=== PATIENT | male | born 1960 | race Caucasian/White ===

== ENCOUNTER 2019-01-23 17:24 | Emergency (ER) | payer OTHER, SELFPAY ==
[2019-01-23 17:25] VITALS: BP 155/103; PULSE 89; RESP 16; TEMP 36.4; O2SAT 96
[2019-01-23] MEDS: Fluorescein 1 MG STRIP 1 STRIP LEFT EYE (18:11)
[2019-01-23] MEDS: Tetracaine 0.5% Ophthalmic Bottle 1 DRP LEFT EYE (18:11)
--- NOTE | 2019-01-23 18:24 | ED.VISSUMM ---
- ER Visit Summary Date of Service: 01/23/19 Chief Complaint: Left eye injury History of Present Illness: The patient is a 58 M context no prior eye surgery. Patient states he was cutting wood and believes a piece of the wood flew in his left eye. Planing of a foreign body sensation and discomfort. He does not wear contacts. Physical Examination: Middle-aged male no acute distress. Vital signs are stable and afebrile. Visual acuity pending. H EENT exam pupils round react light extra movement intact. Left eye is watering. There is no purulent discharge. Upper and lower lids are unremarkable. No swelling. They are both everted there is no foreign body. Left eye is minimally injected. Otherwise. Heart, lung, abdominal, extremity neurologic exam is unremarkable. Fluorescein was placed in the left eye which gave him relief. Tetracaine was instilled. Slit-lamp examination exactly in the center of his pupil in the left there is a small very small corneal abrasion. I do not see any foreign body. I do not see any globe rupture. There was minimal fluorescein uptake. Test Results: None Emergency Department Course and Treatment: Acute left eye corneal abrasion. A straight ophthalmic ointment. Floor seen for pain for the next 24 hours then stop. Follow-up with [facility] as needed. Treatment Plan: Eye doctor as needed. Return if worse. Disposition: Discharge Impression: Left eye corneal abrasion This note was generated with [employer] dictation software. It may contain incorrect words, spelling, and punctuation that were not noted in review of the chart prior to signing ED Disposition - Plan for ED Patient: Referrals: Ulisses Fonseca MD [Primary Care Provider] -
--- NOTE | 2019-01-23 18:26 | ED.DEP ---
ED Disposition - Plan for ED Patient: Disposition: Home or Assisted Living Instructions: ED Eye Injury Corneal Abrasion Referrals: Channing Rene MD [STAFF PHYSICIAN] - 3-5 Days if not improving Additional Instructions: Eye ointment 2-3 times a day to lubricate the eye and prevent infection. The eyedrops or tetracaine for pain relief over the next 24 hours only. After tomorrow night throw them away. If used long-term they retard healing. If you are not improving to follow-up with the eye doctor for further evaluation.
== END 2019-01-23 18:41 | disposition home or self-care (01) ==
PROVIDERS: Emergency Provider Emergency Medicine; Family Provider Family Medicine; PCP Family Medicine
DX: S05.02XA Injury of conjunctiva and corneal abrasion without foreign body, left eye, initial encounter (principal); W22.8XXA Striking against or struck by other objects, initial encounter; Y93.89 Activity, other specified; Y92.9 Unspecified place or not applicable
CPT/HCPCS: 99282

== ENCOUNTER → 2019-02-03 11:02 | Outpatient (CLI) | payer OTHER, SELFPAY ==
[2019-02-03 12:35] LABS: Absolute Lymphocyte Count 1.55 X10^3/ul (0.83-4.51); Absolute Neutrophil Count 2.9 X10^3/uL (2.0-7.7); Basophil# 0.05 X10^3/uL; Basophil% 0.9 % (0-1); Eosinophil# 0.54 X10^3/uL; Eosinophils% 9.5 % (0-5); Hematocrit 45.5 % (40-54); Hemoglobin 15.4 g/dl (13.0-16.5); Lymphocyte # 1.55 X10^3/ul (4.0); Lymphocyte % 27.3 % (19-41); Mean Corp Hgb Conc 33.8 g/gl (32-36); Mean Corpuscular Hgb 31.8 pg (27.0-32.0); Mean Corpuscular Volume 93.8 fL (80-94); Mean Platelet Vol. 10.5 fl (6.2-12.0); Monocyte# 0.63 X10^3/uL; Monocyte% 11.1 % (0-10); Platelet Count 229 K/mm3 (150-450); RBC Distribution Width CV 12.3 % (11.6-14.6); RBC Distribution Width SD 41.7 fl (35.1-43.9); Red Blood Count 4.85 M/mm3 (4.6-6.2); White Blood Count 5.7 K/mm3 (4.4-11.0)
[2019-02-03 12:42] LABS: POSITIVE COUNT NO; POSITIVE DIFFERENTIAL NO; POSITIVE MORPHOLOGY NO
[2019-02-03 12:48] LABS: Anion Gap 6 (5-15); BUN 19 mg/dL (7-18); BUN/Creat Ratio 19.5 RATIO (10-20); Chloride 107 mmol/L (98-107); Cholesterol 182 mg/dL (200); Creatinine, Serum 0.98 mg/dL (0.70-1.30); EST Glomerular Filtration Rate 84 mL/min (>60); Est Glom Filt Rate - Afr Amer 101 mL/min (>60); Glucose 90 mg/dL (74-106); High Density Lipoprotein 41 mg/dL; Potassium 4.3 mmol/L (3.5-5.1); Sodium Level 138 mmol/L (136-145); Triglycerides 91 mg/dL; Very Low Density Lipoprotein 18 mg/dL (5-40)
== END ==
PROVIDERS: Family Provider Family Medicine; PCP Family Medicine; Referring Provider Family Medicine; Visit Provider Family Medicine
DX: I10 Essential (primary) hypertension (principal)
CPT/HCPCS: 36415; 80048; 80061; 85025

== ENCOUNTER → 2019-07-14 10:03 | Outpatient (CLI) | payer OTHER, SELFPAY ==
[2019-07-14 12:30] LABS: Absolute Lymphocyte Count 1.52 X10^3/uL (0.83-4.51); Absolute Neutrophil Count 3.2 X10^3/uL (2.0-7.7); Basophil# 0.06 X10^3/uL; Eosinophil# 0.52 X10^3/uL; Eosinophils% 8.8 % (0-5); Hematocrit 43.3 % (40-54); Hemoglobin 14.3 g/dL (13.0-16.5); Lymphocyte # 1.52 X10^3/ul (4.0); Lymphocyte % 25.6 % (19-41); Mean Corpuscular Hgb 32.3 pg (27.0-32.0); Mean Corpuscular Volume 97.7 fL (80-94); Mean Platelet Vol. 10.4 fl (6.2-12.0); Monocyte# 0.64 X10^3/uL; Monocyte% 10.8 % (0-10); NRBC Flagged by Analyzer 0 % (0-5); Neutrophil # 3.16 X10^3/uL (2.7-7.7); Neutrophil % 53.3 % (47-70); Platelet Count 222 K/mm3 (150-450); RBC Distribution Width SD 43.7 fl (35.1-43.9); Red Blood Count 4.43 M/mm3 (4.6-6.2); White Blood Count 5.9 K/mm3 (4.4-11.0)
[2019-07-14 12:40] LABS: Vitamin D,25 Hydroxy 30.4 ng/mL (29.95-100.01)
[2019-07-14 12:44] LABS: Thyroid Stim Hormone (TSH) 2.52 uIU/mL (0.358-3.74)
== END ==
PROVIDERS: Family Provider Family Medicine; PCP Family Medicine; Referring Provider Family Medicine; Visit Provider Family Medicine
DX: R53.83 Other fatigue (principal)
CPT/HCPCS: 36415; 82306; 84403; 84443; 85025

== ENCOUNTER → 2020-03-08 10:16 | Outpatient (CLI) | payer OTHER, SELFPAY ==
[2020-03-08 13:10] LABS: ALB/GLOB Ratio 1.2 RATIO (0.9-2.4); AST(SGOT) 32 U/L (15-37); Alanine Aminotransfer ALT/SGPT 47 U/L (16-61); Albumin, Serum 3.9 g/dL (3.2-5.0); Alkaline Phosphatase 51 U/L (45-117); Anion Gap 7 (5-15); BUN 18 mg/dL (7-18); BUN/Creat Ratio 16.7 RATIO (10-20); Chloride 107 mmol/L (98-107); Cholesterol 215 mg/dL (200); Creatinine, Serum 1.08 mg/dL (0.70-1.30); EST Glomerular Filtration Rate 74 mL/min (>60); Est Glom Filt Rate - Afr Amer 90 mL/min (>60); Globulin 3.3 g/dL (2.2-4.2); Glucose 96 mg/dL (74-106); High Density Lipoprotein 40 mg/dL; PSA,Total - Annual Screen 0.27 ng/mL (0.00-4.00); Protein, Total 7.2 g/dL (6.4-8.2); Sodium Level 141 mmol/L (136-145); Triglycerides 125 mg/dL; Very Low Density Lipoprotein 25 mg/dL (5-40)
== END ==
PROVIDERS: PCP Family Medicine; Referring Provider Family Medicine; Visit Provider Family Medicine
DX: I10 Essential (primary) hypertension (principal); Z12.5 Encounter for screening for malignant neoplasm of prostate
CPT/HCPCS: 36415; 80053; 80061; 84153; G0103

== ENCOUNTER → 2020-12-27 09:38 | Outpatient (CLI) | payer OTHER, SELFPAY ==
[2020-12-27 10:30] LABS: Erythrocyte Sedimentation Rate 11 mm/hr (0-20)
[2020-12-27 10:31] LABS: Absolute Lymphocyte Count 1.42 X10^3/uL (0.83-4.51); Absolute Neutrophil Count 4.5 X10^3/uL (2.0-7.7); Basophil# 0.08 X10^3/uL; Basophil% 1.1 % (0-1); Eosinophil# 0.52 X10^3/uL; Eosinophils% 7.3 % (0-5); Hematocrit 46.9 % (40-54); Hemoglobin 15.4 g/dL (13.0-16.5); Lymphocyte # 1.42 X10^3/ul (4.0); Lymphocyte % 19.8 % (19-41); Mean Corp Hgb Conc 32.8 g/dL (32-36); Mean Corpuscular Hgb 31.6 pg (27.0-32.0); Mean Corpuscular Volume 96.1 fL (80-94); Mean Platelet Vol. 10.1 fl (6.2-12.0); Monocyte% 8.4 % (0-10); NRBC Flagged by Analyzer 0 % (0-5); Neutrophil # 4.51 X10^3/uL (2.7-7.7); Platelet Count 245 K/mm3 (150-450); RBC Distribution Width SD 42.8 fl (35.1-43.9); Red Blood Count 4.88 M/mm3 (4.6-6.2); White Blood Count 7.2 K/mm3 (4.4-11.0)
[2020-12-27 10:46] LABS: Vitamin B12 662 pg/mL (211-911); Vitamin D,25 Hydroxy 26.8 ng/mL
[2020-12-27 10:55] LABS: ALB/GLOB Ratio 1.1 RATIO (0.9-2.4); AST(SGOT) 32 U/L (15-37); Alanine Aminotransfer ALT/SGPT 51 U/L (16-61); Alkaline Phosphatase 60 U/L (45-117); Anion Gap 7 (5-15); BUN 19 mg/dL (7-18); Calcium,Total 9.3 mg/dL (8.5-10.1); Chloride 106 mmol/L (98-107); Cholesterol 134 mg/dL (200); Creatinine, Serum 0.95 mg/dL (0.70-1.30); EST Glomerular Filtration Rate 86 mL/min (>60); Est Glom Filt Rate - Afr Amer 104 mL/min (>60); Globulin 3.7 g/dL (2.2-4.2); Glucose 100 mg/dL (74-106); High Density Lipoprotein 39 mg/dL; Iron 128 ug/dL (65-175); PSA,Total - Annual Screen 0.27 ng/mL (0.00-4.00); Potassium 3.8 mmol/L (3.5-5.1); Protein, Total 7.7 g/dL (6.4-8.2); Sodium Level 140 mmol/L (136-145); Triglycerides 107 mg/dL; Very Low Density Lipoprotein 21 mg/dL (5-40)
[2020-12-31 04:06] LABS: Testosterone, Free 10.88 ng/dL (5.00-21.00)
[2020-12-31 16:06] LABS: Testosterone, % Free 2.72 % (1.50-4.20); Testosterone, Total 400 ng/dL (264-916)
== END ==
PROVIDERS: PCP Family Medicine; Referring Provider Family Medicine; Visit Provider Family Medicine
DX: Z00.00 Encounter for general adult medical examination without abnormal findings (principal); R53.83 Other fatigue; E78.5 Hyperlipidemia, unspecified
CPT/HCPCS: 36415; 80053; 80061; 82306; 82533; 82607; 83540; 84153; 84402; 84403; 85025; 85652; G0103

== ENCOUNTER → 2021-09-24 14:51 | Outpatient (CLI) | payer OTHER, SELFPAY | PROVIDERS: PCP Family Medicine; Visit Provider Family Medicine | DX: U07.1 COVID-19 (principal) | CPT/HCPCS: 87635; U0005; U0003 ==

== ENCOUNTER 2021-11-08 08:28 | Outpatient (CLI) | payer OTHER, SELFPAY ==
--- NOTE | 2021-11-08 08:34 | RAD_ITS ---
STUDY: X-RAY - LUMBAR SPINE REASON FOR EXAM: Male, 61 years old. Back pain LUMBAGO WITH SCIATICA TECHNIQUE: XR Spine Lumbar Min 4 Views COMPARISON: None FINDINGS: Normal lumbar lordosis. There is no substantial scoliosis. Grade 1 anterolisthesis of L4 on L5. There is multilevel endplate spondylosis of the lumbar vertebrae. There is multi-level degenerative disc disease with multi-level disc space narrowing. There are atherosclerotic vascular calcifications. There is bilateral neural foraminal stenosis at L4-5 and L5-S1. The soft tissue structures are unremarkable. RAD/L/S Spine Min 4 Views IMPRESSION: Degenerative changes of the spine, as detailed above. Electronically Signed: Shilo Yeager MD at 19:41 EST ,
[2021-11-08 10:23] LABS: Microalbumin,Random Urine 16.1 mg/L (NO RANGE EST.); Microalbumin:Creatinine Ratio 6.6 mg/g CRE (<30 mg/g CRE)
[2021-11-08 10:29] LABS: ALB/GLOB Ratio 1.1 RATIO (0.9-2.4); AST(SGOT) 27 U/L (15-37); Alanine Aminotransfer ALT/SGPT 48 U/L (16-61); Alkaline Phosphatase 58 U/L (45-117); Anion Gap 5 (5-15); BUN 27 mg/dL (7-18); BUN/Creat Ratio 25.5 RATIO (10-20); Calcium,Total 9.2 mg/dL (8.5-10.1); Chloride 105 mmol/L (98-107); Cholesterol 106 mg/dL (200); Creatinine, Serum 1.06 mg/dL (0.70-1.30); EST Glomerular Filtration Rate 75 mL/min (>60); Est Glom Filt Rate - Afr Amer 91 mL/min (>60); Globulin 3.7 g/dL (2.2-4.2); Glucose 97 mg/dL (74-106); High Density Lipoprotein 37 mg/dL; PSA,Total - Annual Screen 0.29 ng/mL (0.00-4.00); Protein, Total 7.7 g/dL (6.4-8.2); Sodium Level 136 mmol/L (136-145); Triglycerides 77 mg/dL; Very Low Density Lipoprotein 15 mg/dL (5-40)
[2021-11-08 11:02] LABS: Mucous, Urine 0 SEEN /hpf (<or=2+); Squamous Epithelial Cells - UA 0 SEEN /hpf (0-5); White Blood Cells 0 SEEN /hpf (0-5)
[2021-11-08 11:14] LABS: Color, Urine Yellow (Yellow); Glucose, Dipstick Normal (Normal); Ketone-Dipstick Negative (Negative); Leukocyte Esterase-Dipstick Negative /ul (Negative); Nitrite-Dipstick Negative (Negative); Occult Blood-Urine 25 /ul (Negative); Protein-Dipstick Negative (Negative); Urine Bilirubin Dipstick Negative (Negative); Urine Clarity Cloudy (Clear); Urine Urobilinogen 1 mg/dl (Normal)
[2021-11-08 11:37] LABS: Amorphous Sediment 2+; Bacteria 2+ /hpf (None Seen); Red Blood Cells-Urine 0-5 SEEN /hpf (0-5)
== END 2021-11-08 23:59 | disposition home or self-care (01) ==
LOC: MTLAB 08:32
PROVIDERS: PCP Family Medicine; Referring Provider Family Medicine; Visit Provider Family Medicine
DX: E78.5 Hyperlipidemia, unspecified (principal); M54.40 Lumbago with sciatica, unspecified side; Z12.5 Encounter for screening for malignant neoplasm of prostate
CPT/HCPCS: 36415; 72110; 80053; 80061; 81001; 82043; 82570; 84153; G0103

== ENCOUNTER 2021-11-27 10:31 | Outpatient (CLI) | payer OTHER, SELFPAY ==
--- NOTE | 2021-11-27 10:42 | RAD_ITS ---
History: M50.30 Cervical spine views: Findings: No fracture or subluxation. Multilevel disc space narrowing most prominent at C3-4. Moderate vertebral body osteophytosis and facet arthropathy. Precervical soft tissues are normal. IMPRESSION:Moderate diffuse spondylosis. at 1126 Reported and signed by: Nabeel Long MD Electronically Signed: Nabeel Long MD at 11:25 EST , RAD/Cerv Spine 2 or 3 Views
== END 2021-11-27 23:59 | disposition home or self-care (01) ==
LOC: LAB 10:33
PROVIDERS: PCP Family Medicine; Referring Provider Anesthesiology Pain Medicine; Visit Provider Anesthesiology Pain Medicine
DX: M50.30 Other cervical disc degeneration, unspecified cervical region (principal)
CPT/HCPCS: 72040

== ENCOUNTER 2021-12-30 09:00 | Outpatient (RCR) | payer OTHER, SELFPAY ==
--- NOTE | 2021-11-27 11:59 | HP.PTEVAL_ITS ---
Patient's Visit Information LEDY AMBROCIO is a 61 year old M referred to Physical Therapy by Dr. Elva Acosta MD with a diagnosis of NECK AND BACK PAIN.. 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 I STAY BUSY ALL DAY. ALSO HAS AN ORCHARD AND WILL BE STARTING TO PRUNE SOON. STATES HE DOES A LOT OF BENDING, LIFTING AND TWISTING. DIGS HOLES AND OTHER PHYSICAL THINGS. Present symptoms: PATIENT REPORTS IT IS HIS SPINE THAT HURTS. NECK, UPPER BACK AND LOWER BACK. RIGHT THIGH PAIN, NUMBNESS AND TINGLING. RIGHT NOW HANDS ARE SWEATY AND TINGLY. Present since: CHRONIC AND GRADUALLY GETTING WORSE THE LAST COUPLE OF YEARS. Pain Scale: WORST 3/10, LEAST 0/10. Currently: 10/07. Commenced as a result of: NO APPARENT REASON. Symptoms at onset: LOW BACK PAIN. Worse: DIGGING HOLE, HARD WORK, PROLONGED STANDING, BENDING OVER, BENDING OVER TO WORK ON TABLE. Better: FEELS GOOD TO SIT DOWN AND REST. Disturbed sleep: NO. Previous history/Previous treatment: RIGHT SCIATICA ABOUT 20 YEARS AGO. 20 YEARS AGO HAD PT, CHIRO, AND INJECTIONS BUT NO SURGERY TO RECOVER FROM SCIATICA AND HASN'T HAD ANY TREATMENTS SINCE. Treatment this episode: PT CONSULT. Coughing/sneezing/straining: NEGATIVE. Gait: NORMAL. Difficulty initiating urination: NO. NO BOWEL OR BLADDER DYSFUNCTION. Accidents: NO. Unexplained weight loss: NO. Imaging: STUDY: X-RAY - LUMBAR SPINE. REASON FOR EXAM: Male, 61 years old. Back pain LUMBAGO WITH SCIATICA. TECHNIQUE: XR Spine Lumbar Min 4 Views. COMPARISON: None. . FINDINGS: Normal lumbar lordosis. There is no substantial scoliosis. Grade 1. anterolisthesis of L4 on L5. There is multilevel endplate spondylosis of. the lumbar vertebrae. There is multi-level degenerative disc disease with. multi- level disc space narrowing. There are atherosclerotic vascular. calcifications. There is bilateral neural foraminal stenosis at L4-5 and. L5- S1. The soft tissue structures are unremarkable. . RAD/L/S Spine Min 4 Views. IMPRESSION: Degenerative changes of the spine, as detailed above. . Electronically Signed: Shilo Yeager MD. at 19:41 EST. PMH/Recent major surgery: HTN, HIGH CHOLESTEROL, VITAMIN D. - Objective Sitting/Standing Posture: POOR. FH. RS. NO TORTICOLLIS. Lordosis: MILDLY REDUCED. Lateral shift: NO. Relevant shift: N/A. Active Correction of posture: NE. Other Observations: INCREASED TRUNK FLEXION IN SITTING, STANDING AND WALKING. Motor deficit: NEYDA UE AND LE'S GROSSLY 5/5. Sensory deficit: NEYDA UE AND LE LIGHT TOUCH SENSATION GROSSLY INTACT AND SYMMETRICAL BUT FEET NT. ROM deficit: TIGHT NEYDA PEC'S, HIP FLEXORS, HIP EXT ROTATORS, HS'S AND GASTROC SOLEUS COMPLEX'S. Dural Signs: NEGATIVE NEYDA UE'S AND LE'S. Lumbar mvmt loss: flex - NIL. ext - MOD. R SG - MOD. L SG - MOD. Cervical Mvmt Loss: Flex: NIL. Pro: NIL. Ext: ARCELIA. Ret: NIL. RSB: MIN. LSB: MIN. R Rot: MIN TO MOD. L Rot: MIN TO MOD. Postural strength: FAIR. Core strength: FAIR. TREATMENT: NEUROMUSCULAR REEDUCATION - EDUCATION IN SPINAL ANATOMY AND PHYSIOLOGY AND POSSIBLE BENEFITS OF THERPAY FOR PATIENTS EXAM FINDINGS. PATIENT HAS A LOT OF GOOD QUESTIONS ABOUT HIS CONDITION AND TREATMENT OPTIONS AND THIS PT ADDRESSED THEM TO THE BEST OF ABILITY. - Balance/Special Test Scores Oswestry Low Back Score: 13 Oswestry Neck Score: 8 - Goals Goal 1:: DECREASE C/O NECK PAIN Goal Time Frame: 4-6 Weeks Goal 2:: DECREASE C/O BACK PAIN Goal Time Frame: 4-6 Weeks Goal 3:: IMPROVE LIFTING, WALKING, SITTING, STANDING, DRIVING, READING, WORK AND RECREATIONAL FUNCTION Goal Time Frame: 4-6 Weeks Goal 4:: INSTRUCT IN PROPHYLAXIS Goal Time Frame: 4-6 Weeks - Anticipated Interventions Patient/Client Instruction: Educate patient on: Condition, Plan of Care, Risk Factors For the Purpose of:: To improve self management Therapeutic Exercise to Include: Strength training, Body mechanics, Postural training, Flexibilty training, Neuromotor development, In an aquatic setting, Dynamic Lumbar Stabilization, Fer Exercises For the Purpose of:: To decrease pain, To increase ROM, To improve muscle performance and motor function, To increase tolerance to activity/condition/position, To improve ability of physical actions for home/community/work/leisure Thank you for the opportunity to evaluate your patient. For Medicare and Medicare HMO plans, please review the plan of care and approve it. It will need to be FAXED BACK to us at [phone] for Medicare purposes. For Medicare only, by signing this I certify the plan of care. Please let me know if there are questions or concerns regarding this plan of care. Physician Signature: Date:
--- NOTE | 2021-12-30 09:59 | HP.PTDCSUM_ITS ---
It has been my pleasure to treat LEDY AMBROCIO referred by Dr. Elva Acosta MD, with the diagnosis of NECK AND BACK PAIN. for a total of 8 visit(s). Discharge Date: Please see the following information for a summary of their discharge status. Subjective: NECK MARVA LAST THURSDAY. STATES THE INJECTION WENT WELL AND IT FELT GOOD FOR THE FIRST COUPLE DAYS BUT SOME OF THE SORENESS IS BACK. YESTERDAY DID A LOT OF WELDING WITH A WELDERS HELMET ON SO THAT MIGHT HAVE IRRITATED IT SOME. OVER-ALL BETTER COMPARED TO BEFORE THE SHOT. TRIMMING SOME BRUSH ON THURSDAY AND HAD 2/10 MID BACK PAIN BUT NO PAIN NOW. PATIENT REPORTS HE IS REALLY APPRECIATIVE FOR THE THERAPY HE HAS HAD BUT NECK PAIN Pain Intensity (Out of 10): 2 LOW BACK PAIN Pain Intensity (Out of 10): 0 MID BACK Pain Intensity (Out of 10): 0 % Improvement: 60 Objective/Function: PATIENT WAS SEEN TODAY FOR RE-ASSESSMENT OF PROGRESS TOWARD THE SET PT GOALS AND THE NEED FOR FURTHER PHYSICAL THERAPY VS READINESS FOR DISCHARGE. PATIENT HAS MADE GOOD PROGRESS WITH PT BUT HAS BEEN RELUCTANT TO TRY SOME EX'S HE HAS TOLERATED A FAIR AMOUNT OF EX THOUGH AND IS INDEP WITH A HEP THAT HE IS COMFORTABLE WITH AT THIS POINT. HE WOULD LIKE TO BE DISCHARGE FROM PT FOR NOW. UPON EXAM TODAY: THERE ARE NO SIGNIFICANT OBJECTIVE CHANGES COMPARED TO INITIAL EVAL BUT PATIENT IS REPORTING DECREASED PAIN AND DEMONSTRATING INCREASED ACTIVITY AND EX KNOWLEDGE FOR SPINE CARE. TESTING IN NECK WAS LIMITED TODAY PATIENT DID NOT WANT TO TEST NECK ROM TO AVOID POSSIBLE FLARE UP. OVER- ALL PATIENT IS VERY PLEASANT AND COOPERATIVE TO WORK WITH BUT JUST RELUCTANT TO DO ANYTHING THAT MIGHT FLARE UP HIS NECK. PATIENT DENIED PAIN WITH MID AND LOW BACK TESTING AND EX TODAY. Goal 1:: DECREASE C/O NECK PAIN Goal Progress: Progressing Goal 2:: DECREASE C/O BACK PAIN Goal Progress: Goal Met Goal 3:: IMPROVE LIFTING, WALKING, SITTING, STANDING, DRIVING, READING, WORK AND RECREATIONAL FUNCTION Goal Progress: Progressing Goal 4:: INSTRUCT IN PROPHYLAXIS Goal Progress: Progressing Plan: D/C TO INDEP EX PROGRAM. PATIENT AGREEABLE. If there are questions or concerns regarding this patient's physical therapy, please feel free to call me at [phone]. Thank you for the referral of this patient. Sincerely, Betty Mancini, PT, Cert MDT Balance/Gait/Functional tests - Balance/Special Test Scores Oswestry Low Back Score: 13 Oswestry Neck Score: 8
== END 2021-12-30 10:04 | disposition home or self-care (01) ==
LOC: PT 09:00
PROVIDERS: PCP Family Medicine; Referring Provider Anesthesiology Pain Medicine; Visit Provider Anesthesiology Pain Medicine
DX: M54.9 Dorsalgia, unspecified (principal); M54.2 Cervicalgia
CPT/HCPCS: 97110; 97112; 97162; 97164; 97530

== ENCOUNTER → 2022-12-11 | Outpatient (CLI) | payer OTHER, SELFPAY ==
--- NOTE | 2022-12-11 07:31 | MRI_ITS ---
STUDY: MRI LUMBAR SPINE WITHOUT CONTRAST REASON FOR EXAM: Male, 62 years old. RADICULOPATHY TECHNIQUE: Standardized fat and water weighted pulse sequences were obtained in the sagittal and axial planes. COMPARISON: X-ray November 08, 2021 FINDINGS: T12-L1: Normal endplates. Normal disc height, hydration and morphology. Normal bilateral facet joints. Normal central canal and bilateral lateral recesses. Normal bilateral intervertebral neural foramina. Normal lumbar lordosis. There is grade 1 anterolisthesis at L4-5. There are possible pars interarticularis defects of L4. There is grade 1 retrolisthesis at L5-S1. There is no substantial scoliosis. Normal conus medullaris that terminates at the T12 L1-2: Disc bulge with mild spurring. Normal bilateral facet joints. Normal central canal and bilateral lateral recesses. Normal bilateral intervertebral neural foramina. L2-3: Disc bulge with mild spurring. Mild spurring of the bilateral facet joints. Normal central canal and bilateral lateral recesses. Normal bilateral intervertebral neural foramina. L3-4: Disc bulge with mild spurring. Spurring of the bilateral facet joints. Normal central canal and bilateral lateral recesses. Normal bilateral intervertebral neural foramina. L4-5: Disc space narrowing with endplate change. Disc bulge. Facet spurring and ligamentum flavum hypertrophy. No canal stenosis. Bilateral foraminal narrowing and distortion L5-S1: Disc space narrowing with endplate changes. Disc bulge and spurring. Facet spurring. No canal stenosis. Left greater than right foraminal narrowing. Normal visualized sacral ala. Normal visualized paraspinous soft tissue structures. MRI/Spine Lumbar (Routine) IMPRESSION: Degenerative changes L4-5 and L5-S1 foraminal narrowing. Spondylolisthesis with probable spondylolysis at L4-5. Electronically Signed: Aristeo Vazquez MD at 9:53 EDT ,
== END | disposition home or self-care (01) ==
PROVIDERS: PCP Family Medicine; Referring Provider Anesthesiology Pain Medicine; Visit Provider Anesthesiology Pain Medicine
DX: M54.16 Radiculopathy, lumbar region (principal)
CPT/HCPCS: 72148

== ENCOUNTER → 2023-03-05 | Outpatient (CLI) | payer OTHER, SELFPAY ==
[2023-03-05 11:05] LABS: ALB/GLOB Ratio 1.1 RATIO (0.9-2.4); AST(SGOT) 41 U/L (15-37); Alanine Aminotransfer ALT/SGPT 59 U/L (16-61); Albumin, Serum 3.6 g/dL (3.2-5.0); Alkaline Phosphatase 58 U/L (45-117); Anion Gap 5 (5-15); BUN 18 mg/dL (7-18); BUN/Creat Ratio 18.9 RATIO (10-20); Calcium,Total 8.9 mg/dL (8.5-10.1); Chloride 107 mmol/L (98-107); Creatinine, Serum 0.95 mg/dL (0.70-1.30); EST Glomerular Filtration Rate 85 mL/min (>60); Est Glom Filt Rate - Afr Amer 102 mL/min (>60); Globulin 3.4 g/dL (2.2-4.2); Glucose 96 mg/dL (74-106); PSA,Total - Annual Screen 0.33 ng/mL (0.00-4.00); Sodium Level 138 mmol/L (136-145)
[2023-03-05 11:37] LABS: Vitamin D,25 Hydroxy 45.8 ng/mL
== END | disposition home or self-care (01) ==
LOC: MFPLAB 09:06
PROVIDERS: PCP Family Medicine; Visit Provider Family Medicine
DX: Z00.00 Encounter for general adult medical examination without abnormal findings (principal); E78.5 Hyperlipidemia, unspecified; E55.9 Vitamin D deficiency, unspecified; Z12.5 Encounter for screening for malignant neoplasm of prostate
CPT/HCPCS: 36415; 80053; 82306; 84153; G0103

== ENCOUNTER → 2023-06-08 | Outpatient (CLI) | payer OTHER, SELFPAY ==
--- NOTE | 2023-06-08 06:41 | MRI_ITS ---
HISTORY: RADICULOPATHY, neck pain, right arm numbness and tingling. TECHNIQUE: Multiplanar and multisequence MR images of the cervical spine were obtained without contrast. 288 images. COMPARISON: XR 11/27/2021. FINDINGS: VERTEBRAE: Vertebral body heights maintained. Mild degenerative endplate changes of C4-5, C5-6, C6-7. 6 mm left L2 vertebral body hemangioma incidentally noted. VERTEBRAL ALIGNMENT: Straightening of the cervical lordosis without anterior or posterior subluxation. SPINAL CORD: Cervical cord signal and morphology within normal limits. SOFT TISSUES: No prevertebral fluid collection. INTERVERTEBRAL DISCS: C2-3, C3-4: No significant posterior disc protrusion, central canal stenosis, or foraminal narrowing. C4-5: Minimal posterior disc bulge osteophyte complex without significant central canal stenosis or foraminal narrowing. C5-6: Mild posterior disc bulge osteophyte complex with uncovertebral and facet arthropathy resulting in mild central canal stenosis, moderate right, and mild left foraminal narrowing. C6-7: Mild posterior disc bulge osteophyte complex eccentric to the right abutting the right ventral cord with uncovertebral and facet arthropathy resulting in mild central canal stenosis and bilateral foraminal narrowing. C7-T1: No significant posterior disc protrusion, central canal stenosis, or foraminal narrowing. MRI/Spine Cervical (Routine) IMPRESSION: Mild multilevel degenerative disc disease of the cervical spine as above. Electronically Signed: Nilsa Monteiro MD at 12:42 EDT ,
== END | disposition home or self-care (01) ==
PROVIDERS: PCP Family Medicine; Referring Provider Anesthesiology Pain Medicine; Visit Provider Anesthesiology Pain Medicine
DX: M54.12 Radiculopathy, cervical region (principal)
CPT/HCPCS: 72141

== ENCOUNTER → 2024-09-14 | Outpatient (CLI) | payer MEDICARE, SELFPAY ==
[2024-09-14 11:09] LABS: AST(SGOT) 31 U/L (15-37); Alanine Aminotransfer ALT/SGPT 39 U/L (16-61); Albumin, Serum 3.6 g/dL (3.2-5.0); Alkaline Phosphatase 64 U/L (45-117); Anion Gap 5 (5-15); BUN 19 mg/dL (7-18); BUN/Creat Ratio 19.4 RATIO (10-20); Calcium,Total 9.1 mg/dL (8.5-10.1); Chloride 107 mmol/L (98-107); Creatinine, Serum 0.98 mg/dL (0.70-1.30); EST Glomerular Filtration Rate 82 mL/min (>60); Est Glom Filt Rate - Afr Amer 99 mL/min (>60); Globulin 3.5 g/dL (2.2-4.2); Glucose 111 mg/dL (74-106); PSA,Total - Annual Screen 0.64 ng/mL (0.00-4.00); Potassium 3.5 mmol/L (3.5-5.1); Protein, Total 7.1 g/dL (6.4-8.2); Sodium Level 138 mmol/L (136-145)
[2024-09-15 07:51] LABS: Vitamin D,25 Hydroxy 40.1 ng/mL
== END | disposition home or self-care (01) ==
PROVIDERS: PCP Family Medicine; Referring Provider Family Medicine; Visit Provider Family Medicine
DX: Z00.00 Encounter for general adult medical examination without abnormal findings (principal); E55.9 Vitamin D deficiency, unspecified; E78.5 Hyperlipidemia, unspecified; Z12.5 Encounter for screening for malignant neoplasm of prostate
CPT/HCPCS: 36415; 80053; 82306; 84153; G0103

== ENCOUNTER → 2025-09-19 | Outpatient (CLI) | payer MEDICARE, SELFPAY ==
--- OUTSIDE RECORDS SUMMARY | 2025-09-19 09:29 | XMS RPT_ITS | CCD ---
Author Organization [facility] Care Team Providers Care Patternmaker Metal Bench Name Role Phone Tejal Ford Unavailable MD Ernesto, Charly Lind Unavailable Tejal Ford Unavailable Jasmina Rdz RN Unavailable Unavailable Jasmina Rdz RN Unavailable Unavailable Medications Completed/Discontinued Medications Medication Drug Class(es) Dates Sig (Normalized) Sig (Original) aspirin 81 mg delayed release oral tablet (5 sources) Platelet Aggregation Inhibitor, Nonsteroidal Anti-inflammatory Drug Start: 07-07-2017 ASPIRIN EC 81 MG TBEC will need ordered if having cath ASPIRIN [id number] Jasmina Rdz RN atorvastatin 10 mg oral tablet (2 sources) HMG-CoA Reductase Inhibitor Start: 07-15-2017 take 1 tablet by mouth once daily LIPITOR 10 MG TABS One tablet by mouth daily ATORVASTATIN CALCIUM [id number] Charly Orozco MD clopidogrel 75 mg oral tablet (7 sources) P2Y12 Platelet Inhibitor Start: 07-07-2017 End: 07-15-2017 PLAVIX 75 MG TABS will need ordered if having cath CLOPIDOGREL BISULFATE [id number] Jasmina Rdz RN Problems Active Problems Problem Classification Problem Date Documented Da te Episodic/Chronic Other nutritional; endocrine; and metabolic disorders (2 sources) Obesity; Translations: [Obesity, unspecified] Onset: 07-15-2017 07-15-2017 Chronic Unclassified (2 sources) Body mass index (BMI) 39.0-39.9, adult; Translations: [Body mass index (BMI) 39.0-39.9, adult] Onset: 07-15-2017 07-15-2017 Chronic Past or Other Problems Problem Classification Problem Date Documented Date Episodic/Chronic Nonspecific chest pain (5 sources) Chest pain; Translations: [Chest pain, unspecified] Onset: 07-07-2017 07-07-2017 Episodic Other screening for suspected conditions (not mental disorders or infectious disease) (10 sources) Cardiovascular stress test abnormal; Translations: [Electrocardiogram abnormal] Onset: 07-07-2017 07-07-2017 Episodic Results Test Name Value Interpretation Reference Range Facil ity Office Visiton 07-15-2017 Dietary management education, guidance, and counseling (procedure) yes Invalid Interpretation Code [facility] Work Phone: Documentation of current medications (procedure) Done Invalid Interpretation Code [facility] Work Phone: Clinical Lists Update: Prelo chairman 07-07-2017 Left ventricular Ejection fraction 53 % Invalid Interpretation Code [facility] Work Phone: Tobacco smoking status NHIS Never smoker Invalid Interpretation Code [facility] Work Phone: Tobacco use [facility]PHS Never smoker Invalid Interpretation Code [facility] Work Phone: Chart Maintenanceon 05-11-20 17 Cholesterol 195 mg/dL Invalid Interpretation Code [facility] Work Phone: HDL Cholesterol 49 mg/dL Invalid Interpretation Code [facility] Work Phone: LDL Cholesterol 126 mg/dL Invalid Interpretation Code [facility] Work Phone: Triglyceride 98 mg/dL Invalid Interpretation Code [facility] Work Phone: Vital Signs Date Time Vital Sign Value Performing Clinician Yamila crain 07-15-2017 14:07-0400 BMI (Body Mass Index) 39.68 kg/m2 Tejal Ford [facility] Work Phone: 07-15-2017 14:07-0400 BP Diastolic 82 mm[Hg] Tejal Logan [facility] Work Phone: 07-15-2017 14:07-0400 BP Systolic 124 mm[Hg] Tejal Ford [facility] Work Phone: 07-15-2017 14:07-0400 Height 193.04 cm Tejal Ford [facility] Work Phone: 07-15-2017 14:07-0400 Pulse (Heart Rate) 70 /min Tejal [facility] Work Phone: 07-15-2017 14:07-0400 Weight 147.87 kg Tejal [facility] Work Phone: Plan of Treatment Date Care Activity Detail Author Start: 01-13-2018 End: 01-13-2018 Appointment Appointment [facility] Work Phone: Start: 07-15-2017 End: 07-15-2017 Appointment Appointment [facility] Work Phone: Start: 07-15-2017 End: 07-15-2017 Follow Up Appt 6 months Follow Up Appt 6 months [facility] Work Phone: Start: 07-15-2017 End: 07-15-2017 [facility] Work Phone: Additional Source Comments FOR RECORDS PERTAINING TO PATIENTS WHO ARE OR HAVE BEEN ENROLLED IN A CHEMICAL DEPENDENCY/SUBSTANCEABUSE PROGRAM, SOME INFORMATION MAY BE OMITTED. This clinical summary was aggregated from multiple sources. Caution should be exercised in using it in the provision of clinical care. This summary normalizes information from multiple sources, and as a consequence, information in this document may materially change the coding, format and clinical context of patient data. In addition, data may be omitted in some cases. CLINICAL DECISIONS SHOULD BE BASED ON THE PRIMARY CLINICAL RECORDS. [email or web address] provides no warranty or guarantee of the accuracy or completeness of information in this document.
[2025-09-19 10:01] LABS: Hematocrit 46.4 % (40-54); Hemoglobin 15.4 g/dL (13.0-16.5); Immature Granulocytes Count 0.040 X10^3/uL (0.0-0.0); Mean Corp Hgb Conc 33.2 g/dL (32-36); Mean Corpuscular Volume 96.9 fL (80-94); Mean Platelet Vol. 9.8 fl (6.2-12.0); NRBC Flagged by Analyzer 0 % (0-5); Platelet Count 230 K/mm3 (150-450); RBC Distribution Width CV 12.4 % (11.6-14.6); RBC Distribution Width SD 44.5 fl (35.1-43.9); Red Blood Count 4.79 M/mm3 (4.6-6.2); White Blood Count 6.3 K/mm3 (4.4-11.0)
[2025-09-19 10:26] LABS: Magnesium 2.3 mg/dL (1.5-2.2)
== END | disposition home or self-care (01) ==
LOC: MTLAB 09:08
PROVIDERS: PCP Family Medicine; Referring Provider Family Medicine; Visit Provider Family Medicine
DX: I48.91 Unspecified atrial fibrillation (principal)
CPT/HCPCS: 36415; 83735; 84443; 85025